=== PATIENT | female | born 1935 | race Caucasian/White ===

== ENCOUNTER 2022-01-30 08:00 | Outpatient (CLI) | payer OTHER | END 2022-01-30 08:10 | disposition home or self-care (01) | LOC: RAD 08:00 | PROVIDERS: ATTEND Surgery | DX: R14.0 Abdominal distension (gaseous) (principal); R93.5 Abnormal findings on diagnostic imaging of other abdominal regions, including retroperitoneum; D50.9 Iron deficiency anemia, unspecified; K92.1 Melena; R19.4 Change in bowel habit ==

== ENCOUNTER → 2022-02-04 08:00 | Outpatient (CLI) | payer OTHER ==
[~2022-02-04] VITALS: Ht 152.4 cm; Wt 51.7 kg
[~2022-02-04 08:00] MED LIST: FAMO PO; FAMOTIDINE40 MG; KETOROLAC60 MG/2 M1; LEVOTHYROXINE25 MCG PO; PANTOPRAZOLE SO40 MG; PEPCID AC20 MG PO; PROTO PO; SIMVAS PO; SIMVASTATIN40 MG; SUCRALFATE1 GM; SYNTHROID50 MCG; ULTRACET PO; VALSARTAN-HCTZ1 EAC3; VERAPAMIL ER240 MG PO
== END | disposition home or self-care (01) ==
LOC: EDUNIT# 01-31 11:15 → LAB 08:00 → SURG-SUITE 02-06 08:30 → EDSTATUS 02-06 12:15
PROVIDERS: ATTEND Surgery
DX: R14.0 Abdominal distension (gaseous) (principal); R93.5 Abnormal findings on diagnostic imaging of other abdominal regions, including retroperitoneum; D50.9 Iron deficiency anemia, unspecified; K92.1 Melena; R19.4 Change in bowel habit; Z20.818 Contact with and (suspected) exposure to other bacterial communicable diseases; Z20.828 Contact with and (suspected) exposure to other viral communicable diseases

== ENCOUNTER 2022-02-08 10:42 | Inpatient (IN) | payer OTHER ==
[~2022-02-08] VITALS: Ht 162.6 cm; Wt 61.2 kg
[~2022-02-08 10:42] MED LIST changes: -FAMOTIDINE40 MG; -KETOROLAC60 MG/2 M1; -PANTOPRAZOLE SO40 MG; -PEPCID AC20 MG PO; -SIMVASTATIN40 MG; -SUCRALFATE1 GM; -ULTRACET PO; -VALSARTAN-HCTZ1 EAC3
--- NOTE | 2022-02-08 11:13 | NUR ---
PTE EVALUADA POR EL DR CAROL [place]. MS C [place] ORIENTA SOBRE EL [place] ORDE[place], LO CUAL REFIERE ENTENDER, REALIZA PRUEBAS DE LABORATORIO Y ADMINISTRA MEDICAMENTOS LUC ORDEN MEDICA Y SIGUIENDO MEDIDAS ASEPTICAS.
--- NOTE | 2022-02-08 11:40 | NUR ---
SE NOTIFICA A MS DARLENE (PERSONAL DE [facility] REQUISICION DE 2 U DE PRBC FRACCIONADAS.
[2022-02-10] MEDS ORDERED: FAMOTIDINE40 MG (09:08)
[2022-02-10] MEDS ORDERED: SIMVASTATIN40 MG (09:08)
[2022-02-10] MEDS ORDERED: VALSARTAN-HCTZ1 EAC3 (09:09)
[2022-02-10] MEDS ORDERED: SUCRALFATE1 GM (09:09)
[2022-02-10] MEDS ORDERED: PANTOPRAZOLE SO40 MG (09:09)
[2022-02-10] MEDS ORDERED: KETOROLAC60 MG/2 M1 (09:09)
[2022-02-19] MEDS ORDERED: PEPCID AC20 MG PO (08:08)
[2022-02-19] MEDS ORDERED: ULTRACET PO (08:08)
== END 2022-02-19 12:17 | disposition home or self-care (01) | DRG 330 ==
LOC: ER 10:42 → SURH 12:20 → SEC-K 12:20 → SURH 13:31
PROVIDERS: ADMIT Surgery; ATTEND Surgery
PROC: 30233N1 Transfusion of Nonautologous Red Blood Cells into Peripheral Vein, Percutaneous Approach (ICD-10-PCS; 2022-02-08)
PROC: 0FBG4ZZ Excision of Pancreas, Percutaneous Endoscopic Approach (ICD-10-PCS; 2022-02-10)
PROC: 0DBU4ZZ Excision of Omentum, Percutaneous Endoscopic Approach (ICD-10-PCS; 2022-02-10)
PROC: 0DTG4ZZ Resection of Left Large Intestine, Percutaneous Endoscopic Approach (ICD-10-PCS; principal; 2022-02-10 11:00)
PROC: BW2110Z Computerized Tomography (CT Scan) of Abdomen and Pelvis using Low Osmolar Contrast, Unenhanced and Enhanced (ICD-10-PCS; 2022-02-17)
PROC: B02 Imaging, Central Nervous System, Computerized Tomography (CT Scan) (ICD-10-PCS; 2022-02-18)
DX: C18.6 Malignant neoplasm of descending colon (principal); F05 Delirium due to known physiological condition; K86.3 Pseudocyst of pancreas; D63.0 Anemia in neoplastic disease; D64.9 Anemia, unspecified; E03.9 Hypothyroidism, unspecified; I10 Essential (primary) hypertension; R53.81 Other malaise

== ENCOUNTER 2022-04-07 07:19 | Outpatient (CLI) | payer OTHER ==
[~2022-04-07 07:19] MED LIST changes: +FAMOTIDINE40 MG; +KETOROLAC60 MG/2 M1; +PANTOPRAZOLE SO40 MG; +PEPCID AC20 MG PO; +SIMVASTATIN40 MG; +SUCRALFATE1 GM; +ULTRACET PO; +VALSARTAN-HCTZ1 EAC3
== END 2022-04-07 07:26 | disposition home or self-care (01) ==
LOC: NUCLEAR 07:19
PROVIDERS: ATTEND Surgery
DX: C18.5 Malignant neoplasm of splenic flexure (principal)
CPT/HCPCS: 78816; A9552